=== PATIENT | male | born 1990 | race Caucasian/White ===

== ENCOUNTER 2016-11-16 21:01 | Emergency (ER) | payer OTHER ==
[~2016-11-16 21:01] MED LIST: AMOXICILLIN500 MG PO; BLM PO; CYCLOBENZAPRINE5 M2 PO; LOTRIMIN CR1 %/45 GM TOP; MEDROL4 M2 PO; NEXIUM40 M1 PO; OMEPRAZOLE40 MG PO; PREDNICOT20 MG PO; PREDNISONE 20MG20 MG PO; ZITHROMAX Z PA250 MG PO
[2016-11-16 21:21] VITALS: BP 145/90
--- NOTE | 2016-11-16 22:05 | ED GENERAL ADULT ---
History of Present Illness General Chief Complaint: General Adult Stated Complaint: URI SYMPTOMS, RIGHT ARM PAIN Source: patient, old records Exam Limitations: no limitations Vital Signs & Intake/Output Vital Signs & Intake/Output Vital Signs Date Time Temp Pulse Resp B/P Pulse O2 O2 Flow FiO2 Ox Delivery Rate 11/16 2120 98.3 79 22 145/90 98 Allergies Coded Allergies: NO KNOWN ALLERGIES (08/23/12) Reconcile Medications Benzonatate 200 MG CAPSULE 1 CAP PO TID PRN cough Esomeprazole (Nexium) 40 MG CAPSULE.DR 1 CAP PO DAILY GERD (Reported) Meloxicam (Mobic) 15 MG TABLET 1 TAB PO DAILY PRN PAIN/INFLAMMATION Triage Note: PER PT COUGH AND CONGESTION X 5 DAYS ALSO MUSCLE PAIN TO RT ARM HOT SHOWER NOT HELPING Triage Nurses Notes Reviewed? yes HPI: Patient is a 26-year-old male presents complaining of cough with sputum production and right arm pain. Patient reports that symptoms began with a sore throat approximately one week ago. Approximately 4 days ago patient started experiencing voice hoarseness. 3-4 days of cough with green sputum production. The past couple days patient has had a sharp pain in the right biceps area that worsens with movement. Patient has been taking a muscle relaxant and Mucinex with no improvement. Subjective fevers yesterday. Denies wheezing, chest pain. (FAVIO MARCANO) Past History Travel History Traveled to [place] past 21 day No Medical History Any Pertinent Medical History? see below for history Neurological: NONE EENT: NONE Cardiovascular: NONE Respiratory: asthma Gastrointestinal: GERD Hepatic: NONE Renal: NONE Musculoskeletal: NONE Psychiatric: NONE Endocrine: NONE Surgical History Surgical History: N Psychosocial History What is your primary language Gambian Tobacco Use: Current Daily Use Daily Tobacco Use Amount/Type: =< 4 Cigarettes daily Family History Hx Contributory? No (FAVIO MARCANO) Review of Systems Review of Systems Constitutional: Reports: fever (subjective, none currently). Denies: chills. EENTM: Reports: throat pain. Respiratory: Reports: cough, sputum production. Cardiovascular: Denies: chest pain. GI: Denies: abdominal pain, nausea, vomiting. Genitourinary: Reports: no symptoms. Musculoskeletal: Reports: see HPI. Denies: back pain, neck pain. Skin: Reports: no symptoms. Neurological/Psychological: Reports: no symptoms. Hematologic/Endocrine: Reports: no symptoms. Immunologic/Allergic: Reports: no symptoms. (LIDIA STAHL,FAVIO) Physical Exam Physical Exam General Appearance: well developed/nourished, alert, awake Head: atraumatic, normal appearance Eyes: Bilateral: normal appearance, PERRL, EOMI. Ears, Nose, Throat: normal pharynx, normal ENT inspection, hearing grossly normal Neck: normal inspection, supple, full range of motion, no midline tenderness Respiratory: normal breath sounds, chest non-tender, no respiratory distress, lungs clear Cardiovascular: regular rate/rhythm (no appreciable murmur) Peripheral Pulses: 2+ radial (R) Gastrointestinal: soft, non-tender Back: normal inspection, normal range of motion, no vertebral tenderness Extremities: Full range of motion of all 4 extremities. Tenderness right mid bicep and right anterior shoulder in the area of the right biceps tendon. No lower extremity edema or calf tenderness Neurologic/Psych: no motor/sensory deficits, awake, alert, oriented x 3, normal gait, normal mood/affect Skin: intact, normal color, warm/dry Lymphatic: no anterior cervical augustus Core Measures ACS in differential dx? No CVA/TIA Diagnosis: No Severe Sepsis Present: No Septic Shock Present: No (FAVIO MARCANO) Progress Differential Diagnoses I considered the following diagnoses in my evaluation of the patient: bronchitis , pneumonia, aortic dissection, biceps strain, biceps tendonitis Plan of Care: Orders Procedure Date/time Status XRY-CHEST XRAY, PA AND LATERAL 11/16 2210 Active Diagnostic Imaging: Viewed by Me: Radiology Read. Discussed w/RAD: Radiology Read. CXR Impression: PATIENT: NEW L[place] PRESENT AGE: 26 PATIENT ACCOUNT NO: [id number] : 92 LOCATION: [facility] ORDERING PHYSICIAN: FAVIO STAHL SERVICE DATE: 11/16/16 EXAM TYPE: RAD - XRY-CHEST XRAY, PA AND LATERAL EXAMINATION: XR CHEST, 2 VIEWS CLINICAL INFORMATION: Cough with green sputum production. Rule out pneumonia. COMPARISON: 06/21/2014 TECHNIQUE: PA and lateral views of the chest were obtained. FINDINGS: Lungs are clear. No consolidation, pneumothorax, or pleural effusion. Cardiac and mediastinal contours are normal. Pulmonary vasculature is unremarkable. Trachea is midline. Osseous structures are unremarkable. IMPRESSION: Normal chest radiographs. DICTATED BY: MAGED YOUNG MD DATE/TIME DICTATED:11/16/162246 TREASURY MANAGER:SWAPNA DATE/TIME TRANSCRIBED:11/16/162246 CONFIDENTIAL, DO NOT COPY WITHOUT APPROPRIATE AUTHORIZATION. <Electronically signed in Other Vendor System> SIGNED BY: MAGED YOUNG MD 11/16/16 3160 Initial ED EKG: none (FAVIO MARCANO) Departure Departure Disposition: HOME OR SELF CARE Condition: Stable Clinical Impression Primary Impression: Bronchitis Secondary Impressions: Strain of right biceps Qualifiers: Encounter type: initial encounter Qualified Code: S46.111A - Strain of muscle, fascia and tendon of long head of biceps, right arm, initial encounter Referrals: IAN ADEN APRN (PCP/Family) Referred to [facility] as new patient No Additional Instructions: Follow up with your primary care provider within 1 week for further evaluation. Return to the ER if difficulty breathing or worsening of symptoms. Departure Forms: Customer Survey General Discharge Information Prescriptions: Current Visit Scripts Benzonatate 1 CAP PO TID PRN cough #30 CAP Meloxicam (Mobic) 1 TAB PO DAILY PRN PAIN/INFLAMMATION #10 TAB (FAVIO MARCANO) PA/ANTENNA RIGGER Co-Sign Statement Statement: ED Attending supervision documentation- [] I saw and evaluated the patient. I have also reviewed all the pertinent lab results and diagnostic results. I agree with the findings and the plan of care as documented in the PA's/ANTENNA RIGGER's documentation. [x] I have reviewed the ED Record and agree with the PA's/ANTENNA RIGGER's documentation. [] Additions or exceptions (if any) to the PAs/ANTENNA RIGGER's note and plan are summarized below: [] (YARIEL ROSENBAUM,BI Jarvis) Critical Care Note Critical Care Note Critical Care Time: non-applicable (FAVIO MARCANO)
--- NOTE | 2016-11-16 22:50 | RADIOLOGY REPORT ---
EXAMINATION: XR CHEST, 2 VIEWS CLINICAL INFORMATION: Cough with green sputum production. Rule out pneumonia. COMPARISON: 06/21/2014 TECHNIQUE: PA and lateral views of the chest were obtained. FINDINGS: Lungs are clear. No consolidation, pneumothorax, or pleural effusion. Cardiac and mediastinal contours are normal. Pulmonary vasculature is unremarkable. Trachea is midline. Osseous structures are unremarkable. IMPRESSION: Normal chest radiographs.
[2016-11-16] MEDS ORDERED: BENZONATATE200 M1 PO (22:54)
[2016-11-16] MEDS ORDERED: MOBIC15 M1 PO (22:54)
== END 2016-11-16 22:59 ==
LOC: ERH 21:01
DX: J40 Bronchitis, not specified as acute or chronic (principal); S46.211A Strain of muscle, fascia and tendon of other parts of biceps, right arm, initial encounter; Z72.0 Tobacco use